=== PATIENT | female | born 2000 | race Caucasian/White ===

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

== ENCOUNTER 2022-01-17 11:02 | Emergency (ER) | payer MEDICAID, SELFPAY ==
[2022-01-17 11:04] VITALS: BP 125/88; PULSE 85; RESP 17; TEMP 36.9; O2SAT 100; BMI 35.0
--- NOTE | 2022-01-17 11:19 | EDS_ITS ---
HPI <ESSIE Galo - Last Filed: 01/17/22 13:59> HPI - Female History of Present Illness Chief Complaint: Flank Pain Narrative Narrative: 21-year-old female with no significant medical history presents to the emerge department with 4 days of burning with urination, 2 days of right- sided flank pain. Patient dates the pain came on soft and now is getting worse. Patient is concerned for a kidney infection. Patient also states that she has been thirsty and peeing a lot. Her last laboratory studies with her PCP they were concerned for new onset diabetes. Patient is currently not on any medication. Patient denies any fevers, chills. Patient states that she has had vaginal bleeding for the last 3 weeks secondary to her Depo shot. This has happened before. Patient denies any suspicion of any STDs, patient denies any vaginal drainage. Denies any lower abdominal pain, nausea vomiting fever chills PFSH <ESSIE Galo - Last Filed: 01/17/22 13:59> PFSH Medical History no medical history Home Medications acyclovir 1 tab PO TID #30 tab 10/26/18 [Rx Last Taken Unknown] nitrofurantoin monohyd/m-cryst 100 mg PO Q12 #10 capsule 10/26/18 [Rx Last Taken Unknown] naproxen [Naprosyn] 500 mg PO BID PRN #20 tab 01/17/22 [Rx Last Taken Unknown] Allergy/AdvReac Type Severity Reaction Status Date / Time No Known Allergies Allergy Verified 01/17/22 11:03 Surgical History no surgical history Social History Smoking Status: Current every day smoker tobacco type: cigarettes ROS <ESSIE Galo - Last Filed: 01/17/22 13:59> ROS ED ROS Narrative Constitutional: Negative for fever, chills, weight loss or gain, weakness Eyes: Negative for vision loss, vision change, double vision ENT: Negative for any hearing changes, ringing in the ears, dizziness, discharge, pain Nose: Negative for any congestion, runny nose, sinus pain, allergies Throat: Negative for any sore throat hoarseness, voice changes, Cardiovascular: Negative for any chest pain, tightness, palpitations, racing heartbeat Respiratory: Negative for any coughs, sputum production, coughing, hemoptysis, shortness of breath, shortness of breath on exertion, Gastrointestinal: Negative for any abdominal pain, nausea, vomiting, diarrhea, constipation, blood in stool, blood in vomit : Negative for any incontinence, retention, blood in urine. Positive for urinary frequency, dysuria Muscle skeletal: Negative for any muscle joint pain, stiffness, myalgias, arthralgias, neck pain. Positive for right-sided flank pain Neurological: Negative for any headache, head injury, dizziness, syncope, numbness or tingling Skin: Negative for any rashes, lumps, itching, abrasions, lacerations Psychiatric: Negative for any depression, anxiety, stress, suicidal ideation, homicidal ideation Hematologic: Negative for any easy bruising, excessive bruising, easy bleeding Allergies: Negative for any eczema, hives, rash EXAM <ESSIE Galo - Last Filed: 01/17/22 13:59> Physical Exam Const Vital Signs: 01/17/22 11:04 01/17/22 11:57 01/17/22 13:27 Temperature 98.4 F 98.4 F Temperature Source Temporal Temporal Pulse Rate 85 85 Respiratory Rate 17 17 18 Blood Pressure 125/88 H 125/88 H Blood Pressure Mean 100 100 Pulse Ox 100 100 Oxygen Delivery Method Room Air Room Air <Dr. Edgard Mcdonald DO - Last Filed: 01/17/22 23:07> Physical Exam Const Vital Signs: 01/17/22 11:04 01/17/22 11:57 01/17/22 13:27 Temperature 98.4 F 98.4 F Temperature Source Temporal Temporal Pulse Rate 85 85 Respiratory Rate 17 17 18 Blood Pressure 125/88 H 125/88 H Blood Pressure Mean 100 100 Pulse Ox 100 100 Oxygen Delivery Method Room Air Room Air MDM <ESSIE Galo - Last Filed: 01/17/22 13:59> [facility] Narrative Medical decision making narrative: Patient appears well, patient appears nontoxic, vital signs are stable. Patient presents to the emergency department with complaints of 4 days of right-sided back pain, frequent urination. Patient did receive abdominal work-up, patient's laboratory values are grossly unremarkable, patient is not , patient does show slight blood in her urine however this is secondary to her ongoing menstrual cycle. Patient did receive IV fluids, IV Toradol, patient did receive an ultrasound of her kidneys and bladder. This ultrasound was normal, negative for any renal calculus, cystitis, pyelonephritis. At this time, patient be diagnosed with back pain, patient did have relief with IV fluids, IV Toradol. Patient given naproxen for home instructed return for worsening symptoms. Patient will follow up with her PCP as well as an NEUROPATHOLOGIST Lab Data Attestation: I reviewed the patient's lab results. Labs: Laboratory Results - last 24 hr 01/17/22 01/17/22 01/17/22 11:31 11:56 11:56 WBC 5.5 RBC 4.44 Hgb 14.0 Hct 41.2 MCV 92.8 MCH 31.5 MCHC 34.0 RDW Std Deviation 38.7 RDW Coeff of Toney 11.4 L Plt Count 167 MPV 9.5 Immature Gran % (Auto) 0.400 Neut % (Auto) 55.4 Lymph % (Auto) 34.3 Luna % (Auto) 8.0 Eos % (Auto) 1.5 Baso % (Auto) 0.4 Absolute Neuts (auto) 3.1 Absolute Lymphs (auto) 1.89 Nucleated RBC % 0 Sodium 141 Potassium 3.9 Chloride 112 H Carbon Dioxide 26.0 Anion Gap 3 L BUN 15 Creatinine 0.70 Estim Creat Clear Calc 99.70 Est GFR (MDRD) Af Amer 133 Est GFR (MDRD) Non-Af 110 BUN/Creatinine Ratio 21.3 H Glucose 72 L Calcium 9.1 Urine Color Yellow Urine Clarity Sl. Cloudy Urine pH 7.0 Ur Specific [place] 1.015 Urine Protein Negative Urine Glucose (UA) Normal Urine Ketones Negative Urine Occult Blood 25 H Urine Nitrite Negative Urine Bilirubin Negative Urine Urobilinogen Normal Ur Leukocyte Esterase Negative Urine RBC 0-5 SEEN Urine WBC 0 SEEN Ur Squamous Epith Cells 0-5 SEEN Urine Bacteria 1+ Urine Mucus 0 SEEN Urine Test Negative Radiography Diagnostic Testing: Clinical Impression(s) from Imaging Studies Renal Ultrasound 01/17/22 12:24 IMPRESSION: Normal ultrasound of the kidneys and urinary bladder. Electronically Signed: Johnathon Zheng MD at 13:17 EST , <Dr. Edgard Mcdonald, DO - Last Filed: 01/17/22 23:07> [facility] MDM Narrative Medical decision making narrative: Attending note: Patient seen and evaluated inbound call center agent. I agree with plan work-up. I performed an lxdn-tv-befq evaluation. Nontraumatic left flank pain for 4 days urinary frequency. No fevers. No history kidney stones. Currently on breakthrough menstrual. With her Depo shots. No history of kidney stones history of worsening symptoms of pyelonephritis a year ago. Exam tenderness left abdomen flank region there is no rash or ecchymosis. Nontoxic. Labs all stable creatinine 0.7 white count 5.5 urine did note occult blood 1+ bacteria no other acute findings. Ultrasound was obtained of the kidney showed no hydronephrosis she is treated with Toradol with improvement of symptoms. She will continue NSAIDs. Follow-up as an outpatient. Lab Data Attestation: I reviewed the patient's lab results. Labs: Laboratory Results - last 24 hr 01/17/22 01/17/22 01/17/22 11:31 11:56 11:56 WBC 5.5 RBC 4.44 Hgb 14.0 Hct 41.2 MCV 92.8 MCH 31.5 MCHC 34.0 RDW Std Deviation 38.7 RDW Coeff of Toney 11.4 L Plt Count 167 MPV 9.5 Immature Gran % (Auto) 0.400 Neut % (Auto) 55.4 Lymph % (Auto) 34.3 Luna % (Auto) 8.0 Eos % (Auto) 1.5 Baso % (Auto) 0.4 Absolute Neuts (auto) 3.1 Absolute Lymphs (auto) 1.89 Nucleated RBC % 0 Sodium 141 Potassium 3.9 Chloride 112 H Carbon Dioxide 26.0 Anion Gap 3 L BUN 15 Creatinine 0.70 Estim Creat Clear Calc 99.70 Est GFR (MDRD) Af Amer 133 Est GFR (MDRD) Non-Af 110 BUN/Creatinine Ratio 21.3 H Glucose 72 L Calcium 9.1 Urine Color Yellow Urine Clarity Sl. Cloudy Urine pH 7.0 Ur Specific [place] 1.015 Urine Protein Negative Urine Glucose (UA) Normal Urine Ketones Negative Urine Occult Blood 25 H Urine Nitrite Negative Urine Bilirubin Negative Urine Urobilinogen Normal Ur Leukocyte Esterase Negative Urine RBC 0-5 SEEN Urine WBC 0 SEEN Ur Squamous Epith Cells 0-5 SEEN Urine Bacteria 1+ Urine Mucus 0 SEEN Urine Test Negative Radiography Diagnostic Testing: Clinical Impression(s) from Imaging Studies Renal Ultrasound 01/17/22 12:24 IMPRESSION: Normal ultrasound of the kidneys and urinary bladder. Electronically Signed: Johnathon Zheng MD at 13:17 EST , Discharge Plan Triage Chief Complaint: Flank Pain ED Provider: Jose E King Dx/Rx/DC Orders Clinical Impression: Back pain, History of changes to urinary frequency, Dysmenorrhea Instructions: ED Flank Pain, Uncertain Cause Prescriptions: New naproxen [Naprosyn] 500 mg tablet 500 mg PO BID PRN (Reason: pain) Qty: 20 RF: 0 No Action acyclovir 400 MG tablet 1 tab PO TID Qty: 30 RF: 0 nitrofurantoin monohyd/m-cryst 100 MG capsule 100 mg PO Q12 Qty: 10 RF: 0 Primary Care Provider: Care Physician,No Primary Referrals: Iris Linder DO [STAFF PHYSICIAN] - Laya Hewitt MD [STAFF PHYSICIAN] - Care Physician,No Primary [Primary Care Provider] - Activity Restrictions/Additional Instructions: Please return for any worsening fevers, chills. Please follow-up with the PCP. You also have NEUROPATHOLOGIST follow-up. Disposition Disposition: Home, Self Care Discharge Date/Time: 01/17/22 14:06
[2022-01-17 11:37] LABS: Mucous, Urine 0 SEEN /hpf (<or=2+); White Blood Cells 0 SEEN /hpf (0-5)
[2022-01-17 11:44] LABS: Color, Urine Yellow (Yellow); Glucose, Dipstick Normal (Normal); Ketone-Dipstick Negative (Negative); Leukocyte Esterase-Dipstick Negative /ul (Negative); Nitrite-Dipstick Negative (Negative); Occult Blood-Urine 25 /ul (Negative); Protein-Dipstick Negative (Negative); Specific Gravity, Urine 1.015 (1.002-1.030); Urine Bilirubin Dipstick Negative (Negative); Urine Clarity Sl. Cloudy (Clear); Urine Urobilinogen Normal (Normal)
[2022-01-17 11:50] LABS: Bacteria 1+ /hpf (None Seen); Internal QC Validated? YES +Cl - CLEAR BKGD; Pregnancy, Urine Negative Negative; Red Blood Cells-Urine 0-5 SEEN /hpf (0-5); Squamous Epithelial Cells - UA 0-5 SEEN /hpf (5-10)
[2022-01-17 11:57] VITALS: BP 125/88; PULSE 85; RESP 17; TEMP 36.9; O2SAT 100
[2022-01-17] MEDS: 0.9% Normal Saline 1,000 ML 1000 ML IV (11:59)
[2022-01-17 12:07] LABS: Absolute Lymphocyte Count 1.89 X10^3/uL (0.83-4.51); Absolute Neutrophil Count 3.1 X10^3/uL (2.0-7.7); Basophil# 0.02 X10^3/uL; Basophil% 0.4 % (0-1); Eosinophil# 0.08 X10^3/uL; Eosinophils% 1.5 % (0-5); Hematocrit 41.2 % (37-47); Lymphocyte # 1.89 X10^3/ul (0.83-4.51); Lymphocyte % 34.3 % (19-41); Mean Corpuscular Hgb 31.5 pg (27.0-32.0); Mean Corpuscular Volume 92.8 fL (81-99); Mean Platelet Vol. 9.5 fl (6.2-12.0); Monocyte# 0.44 X10^3/uL; NRBC Flagged by Analyzer 0 % (0-5); Neutrophil # 3.06 X10^3/uL (2.7-7.7); Neutrophil % 55.4 % (47-70); Platelet Count 167 K/mm3 (150-450); RBC Distribution Width CV 11.4 % (11.6-14.6); RBC Distribution Width SD 38.7 fl (35.1-43.9); Red Blood Count 4.44 M/mm3 (4.2-5.4); White Blood Count 5.5 K/mm3 (4.4-11.0)
[2022-01-17 12:23] LABS: Anion Gap 3 (5-15); BUN 15 mg/dL (7-18); BUN/Creat Ratio 21.3 RATIO (10-20); Calcium,Total 9.1 mg/dL (8.5-10.1); Chloride 112 mmol/L (98-107); EST Glomerular Filtration Rate 110 mL/min (>60); Est Glom Filt Rate - Afr Amer 133 mL/min (>60); Glucose 72 mg/dL (74-106); Potassium 3.9 mmol/L (3.5-5.1); Sodium Level 141 mmol/L (136-145)
--- NOTE | 2022-01-17 12:24 | US_ITS ---
STUDY: RENAL ULTRASOUND - COMPLETE REASON FOR EXAM: Female, 21 years old. Right flank pain x 3 days TECHNIQUE: Ultrasound evaluation of the kidneys was performed with real-time and static haines-scale imaging. COMPARISON: None. FINDINGS: RIGHT KIDNEY: Normal location of the right kidney, which is normal in size. The right kidney measures 10.8 cm x 6 cm x 4.5 cm. There is a normal cortex of the right kidney. The renal cortex measures 1.3 cm. There is no right renal mass or cyst. There are no right renal calculi. There is no right hydronephrosis. DISTAL RIGHT URETER: There is non-visualization of the distal right ureter. There is no demonstrated right ureterovesical junction calculus. There is a visualized right ureteral jet. LEFT KIDNEY: Normal location of the left kidney, which is normal in size. The left kidney measures 10.9 cm x 4.5 cm x 4.5 cm. There is a normal cortex of the left kidney. The renal cortex measures 1.6 cm. There is a 2.9 cm x 3.3 cm x 3.1 cm cyst. There are no left renal calculi. There is no left hydronephrosis. DISTAL LEFT URETER: There is non-visualization of the distal left ureter. There is no demonstrated left ureterovesical junction calculus. There is a visualized left ureteral jet. BLADDER: The distended urinary bladder has a volume of 152 ml. There is a normal wall thickness of the distended urinary bladder. There is no demonstrated mass within the urinary bladder. There are no demonstrated bladder calculi. US/Kidney and Bladder IMPRESSION: Normal ultrasound of the kidneys and urinary bladder. Electronically Signed: Johnathon Zheng MD at 13:17 EST ,
--- NOTE | 2022-01-17 13:08 | CM.ED ---
Social Work Consult: No Primary Care Doctor (PCP). Referral source: Self referral. Met with patient in room. Introduced self and social science professor role. Patient agreeable to speak with this social science professor. Patient confirms to not have a PCP in the community. Patient states to have last been to a PCP appointment when patient as like 11. Patient open to this social science professor providing list of in-network PCP's that are local to patient geographical region. This social science professor facilitating conversation with patient on importance of having a PCP. Patient voicing understanding and thanked this social science professor. Patient denies any further concerns in community. No further services indicated. PLAN: Discharge to the community. Shae CARRILLO, PIYUSH
[2022-01-17 13:27] VITALS: RESP 18
[2022-01-17] MEDS: Ketorolac 15 MG/ML Vial IV (14:01)
== END 2022-01-17 14:06 | disposition home or self-care (01) ==
PROVIDERS: Emergency Provider Nurse Practitioner; Visit Provider Nurse Practitioner
DX: R10.9 Unspecified abdominal pain (principal); M54.9 Dorsalgia, unspecified; F17.210 Nicotine dependence, cigarettes, uncomplicated; R30.9 Painful micturition, unspecified; R31.9 Hematuria, unspecified; R35.0 Frequency of micturition
CPT/HCPCS: 76770; 80048; 81001; 81025; 85025; 96361; 96374; 99282; J7030; A4216

== ENCOUNTER 2022-02-06 14:33 | Outpatient (CLI) | payer MEDICAID, SELFPAY | END 2022-02-06 23:59 | disposition home or self-care (01) | PROVIDERS: Referring Provider Obstetrics & Gynecology; Visit Provider Obstetrics & Gynecology | DX: Z11.3 Encounter for screening for infections with a predominantly sexual mode of transmission (principal) ==

== ENCOUNTER 2022-06-06 06:56 | Emergency (ER) | payer MEDICAID, SELFPAY ==
[2022-06-06 06:58] VITALS: BP 127/85; PULSE 83; RESP 16; TEMP 35.8; O2SAT 98; BMI 34.9
--- NOTE | 2022-06-06 07:11 | EX.ED.DYSGE1 ---
HPI History of Present Illness Chief Complaint: Ear Problem Informant: patient Narrative Narrative: Increasing right ear pain for the past few days. Reports fevers. States feels like it swollen side. Denies any recent swimming in pools or lakes. History of similar. States last ear infection 3 months ago placed on amoxicillin. No allergies. Rhinorrhea started yesterday. No sore throat or cough. No past medical history. Motrin taken 12 hours ago. Prior similar symptoms: Yes PFSH PFSH Medical History no medical history Home Medications amoxicillin 500 mg capsule 1 cap PO BID 06/06/22 [History Last Taken Unknown] ciprofloxacin 0.2 %-hydrocortisone 1 % ear drops,suspension (Cipro HC) 3 drp EACH EAR BID 7 days #10 mL 06/06/22 [Rx Last Taken Unknown] Allergy/AdvReac Type Severity Reaction Status Date / Time No Known Allergies Allergy Verified 06/06/22 06:57 Surgical History no surgical history Social History Smoking Status: Former smoker ROS ROS ED Constitutional Constitutional ED: Reports fever(s); Denies chills or sweats Eyes Eyes: Denies change in vision ENT ENT ED: Reports ear pain and rhinorrhea; Denies dysphagia or sore throat Cardiovascular Cardiovascular: Denies chest pain, leg edema, palpitations or racing heartbeat Respiratory/Chest Respiratory/Chest: Denies cough, dyspnea or dyspnea on exertion Gastrointestinal Gastrointestinal: Denies abdominal pain, diarrhea, nausea or vomiting Genitourinary Genitourinary ED: Denies dysuria, hematuria or urinary frequency Musculoskeletal Musculoskeletal: Denies back pain, extremity pain or neck pain Integumentary Denies rash or wounds Neurologic Neurologic: Denies headache(s), paresthesias or weakness EXAM Physical Exam Const Vital Signs: 06/06/22 06:58 Temperature 96.5 F L Temperature Source Temporal Pulse Rate 83 Respiratory Rate 16 Blood Pressure 127/85 H Blood Pressure Mean 99 Pulse Ox 98 Oxygen Delivery Method Room Air Positive well nourished and well developed General Appearance ED: well developed and NAD HEENT Reports moist mucous membranes HEENT Narrative: Right ear: Swollen external canal tragal tenderness TM is intact with no exudates or erythema. Left ear: No swelling, TM intact no erythema. normocephalic and atraumatic Eyes PERRL, EOMs intact bilaterally and conjunctivae normal General Eye ED: Yes normal appearance of both eyes Neck no lymphadenopathy and supple General: Negative for tenderness Chest Wall Chest: Negative for tenderness Resp normal respiratory effort and normal air movement Effort and Inspection: symmetric chest movement; Negative for respiratory distress Cardio regular rate, regular rhythm and no murmurs Peripheral Pulses: pulses 2+ throughout GI normal to inspection, nondistended, normoactive bowel sounds and non-tender Palpation: Negative for guarding or rebound tenderness present Back/Spine no CVA tenderness and no thoracic nor lumbar tenderness Extremity normal to inspection General Extremety ED: Negative for edema or tenderness General Extremity: Negative for edema Neuro oriented x3 and no sensory deficits noted Sensorium / Orientation: awake and alert Skin no rashes or lesions noted and no wounds MDM MDM MDM Narrative Medical decision making narrative: Vital stable afebrile. Exam consistent with acute otitis externa on the right. Meds to bed with Ciprodex to use twice a day. Ibuprofen given. Follow-up with ENT. All questions answered. Discharge Plan Triage Chief Complaint: Ear Problem ED Provider: Edgard Mcdonald Dx/Rx/DC Orders Clinical Impression: Acute otitis externa of right ear Instructions: ED External Ear Infection (Adult) Prescriptions: New Cipro HC 0.2-1 % drops,suspension 3 drp EACH EAR BID 7 Days Qty: 10 0RF No Action amoxicillin 500 mg capsule 1 cap PO BID Primary Care Provider: Care Physician,No Primary Referrals: Jaime Burns MD [STAFF PHYSICIAN] - 1 Week Care Physician,No Primary [Primary Care Provider] - Disposition Disposition: Home, Self Care
[2022-06-06] MEDS: Ibuprofen 600 MG Tablet PO (07:21)
[2022-06-06 07:22] VITALS: RESP 18
== END 2022-06-06 07:24 | disposition home or self-care (01) ==
PROVIDERS: Emergency Provider Emergency Medicine; Visit Provider Emergency Medicine
DX: H60.91 Unspecified otitis externa, right ear (principal); Z87.891 Personal history of nicotine dependence
CPT/HCPCS: 99283